=== PATIENT | female | born 1940 | race African-American/Black ===

== ENCOUNTER 2021-06-28 13:30 | Observation (INO) ==
[2021-06-28 19:10] LABS: Calcium 8.6 MG/DL (8.5-10.1); Potassium 3.2 MMOL/L (3.5-5.1)
[2021-06-28] MEDS ORDERED: SODIUM CHLORIDE 0.9% 1,000 ML IV STA (19:17)
[2021-06-28 19:21] LABS: INR 1.1; PT Patient Result 12.2 SECS (10.5-12.0); Partial Thromboplastin Time 26.5 SECS (23.8-32.1)
[2021-06-28] MEDS ORDERED: propofoL 200 MG/20 ML VIAL IV ONE (19:42)
[2021-06-28] MEDS ORDERED: ONDANSETRON 4 MG/2 ML VIAL IV PRN (20:42)
[2021-06-28] MEDS ORDERED: ZALEPLON 5 MG CAPSULE PO PRN (20:42)
[2021-06-28] MEDS ORDERED: hydrALAZINE 20 MG/1 ML VIAL IV PRN (20:42)
[2021-06-28] MEDS ORDERED: MORPHINE 4 MG/1 ML VIAL IV PRN (20:42)
[2021-06-28] MEDS ORDERED: ACETAMINOPHEN 325 MG TABLET PO PRN (20:42)
[2021-06-28] MEDS ORDERED: GLUCAGON 1 MG VIAL IM PRN (20:42)
[2021-06-28] MEDS ORDERED: DEXTROSE 10% 250 ML BAG IV PRN (20:51)
[2021-06-28 20:59] LABS: Basophils % 0.2 % (0.0-0.8); Eosinophils # 0.1 10*3/uL (0.0-0.87); Eosinophils % 0.8 % (0.00-10.9); Hematocrit 44.3 VOL% (35.7-47.0); Hemoglobin 14.5 GM/DL (12.0-16.0); Immature Granulocytes % 0.7 %; Immature Granulocytes Absolute 0.06 #; Lymphocytes # 2.7 10*3/uL (1.4-4.0); Lymphocytes % 29.4 % (21.3-54.2); Mean Corpuscular HGB Conc 32.7 GM/DL (32-36); Mean Corpuscular Volume 95.3 FL (87-102); Mean Platelet Volume 10.9 FL (9.6-12.0); Monocytes % 10.3 % (1.7-12.7); Neutrophils % 58.6 % (38.7-73.9); Platelet Count 201 T/CUMM (130-400); Red Blood Count 4.65 MC/CUMM (3.8-5.5); Red Cell Distribution Width 14.6 % (9.3-17.3); White Blood Count 9.2 T/CUMM (4-12)
[2021-06-28] MEDS: SODIUM CHLORIDE 0.9% 1,000 ML IV SCH (21:27)
[2021-06-28 22:30] LABS: Bacteria,Urine Occasional /HPF (Few); Mucus,Urine Occasional /LPF (Occasional); RBC,Urine 2 /HPF (0-4); Squamous Epithelial Cell,Urine Occasional /HPF (0-10)
[2021-06-28 22:31] LABS: Glucose,Urine (UA) Negative (Negative); Protein,Urine Negative; Urine Appearance Slightly Cloudy (Clear); Urine Color Yellow (Yellow)
[2021-06-28 22:32] LABS: Bilirubin,Urine Negative (Negative); Blood, Urine Trace mg/dL (Negative); Ketones,Urine Small mg/dl (Negative); Nitrite,Urine Negative (Negative); Urine Urobilinogen 0.2 EU/DL (<2.0)
[2021-06-29] MEDS ORDERED: propofoL 200 MG/20 ML VIAL IV ONE (00:17)
[2021-06-29 01:32] LABS: RPR Confirm - Less than 1 yr REACTIVE (Nonreactive)
[2021-06-29 02:13] LABS: Basophils % 0.3 % (0.0-0.8); Eosinophils # 0.2 10*3/uL (0.0-0.87); Eosinophils % 1.9 % (0.00-10.9); Hematocrit 42.9 VOL% (35.7-47.0); Hemoglobin 14.3 GM/DL (12.0-16.0); Immature Granulocytes % 0.3 %; Immature Granulocytes Absolute 0.02 #; Lymphocytes # 2.4 10*3/uL (1.4-4.0); Lymphocytes % 30.3 % (21.3-54.2); Mean Corpuscular HGB Conc 33.3 GM/DL (32-36); Mean Corpuscular Volume 94.3 FL (87-102); Mean Platelet Volume 10.2 FL (9.6-12.0); Monocytes % 9.3 % (1.7-12.7); Neutrophils % 57.9 % (38.7-73.9); Platelet Count 183 T/CUMM (130-400); Red Blood Count 4.55 MC/CUMM (3.8-5.5); Red Cell Distribution Width 14.4 % (9.3-17.3); White Blood Count 7.8 T/CUMM (4-12)
[2021-06-29 02:42] LABS: Albumin 3.4 G/DL (3.4-5.0); Bilirubin,Total 0.7 MG/DL (0.20-1.00); Calcium 8.4 MG/DL (8.5-10.1); Osmolality,Calculated 280.8 MOS/KG (273-304); Potassium 3.1 MMOL/L (3.5-5.1); Total Protein 7.3 G/DL (6.4-8.2); VLDL Cholesterol 20.8 MG/DL
[2021-06-29] MEDS ORDERED: POTASSIUM CHLORIDE 20 MEQ TABLET PO ONE (08:52)
[2021-06-29] MEDS ORDERED: DEXTROSE 50% 25 GM/50 ML VIAL IV PRN (10:47)
[2021-06-29] MEDS ORDERED: GLUCAGON 1 MG VIAL IM PRN (10:47)
[2021-06-29] MEDS: PANTOPRAZOLE 40 MG TABLET PO SCH (12:05)
[2021-06-29] MEDS: SODIUM CHLORIDE 0.9% 1,000 ML IV SCH (21:21)
[2021-06-30 05:56] LABS: Basophils % 0.4 % (0.0-0.8); Eosinophils # 0.1 10*3/uL (0.0-0.87); Eosinophils % 2.8 % (0.00-10.9); Hematocrit 37.5 VOL% (35.7-47.0); Hemoglobin 12.4 GM/DL (12.0-16.0); Immature Granulocytes % 0.4 %; Immature Granulocytes Absolute 0.02 #; Lymphocytes # 1.7 10*3/uL (1.4-4.0); Lymphocytes % 33.7 % (21.3-54.2); Mean Corpuscular HGB Conc 33.1 GM/DL (32-36); Mean Corpuscular Volume 96.4 FL (87-102); Mean Platelet Volume 10.2 FL (9.6-12.0); Monocytes % 12.2 % (1.7-12.7); Neutrophils % 50.5 % (38.7-73.9); Platelet Count 157 T/CUMM (130-400); Red Blood Count 3.89 MC/CUMM (3.8-5.5); Red Cell Distribution Width 14.6 % (9.3-17.3); White Blood Count 5.1 T/CUMM (4-12)
[2021-06-30 06:08] LABS: Calcium 7.5 MG/DL (8.5-10.1); Osmolality,Calculated 285.3 MOS/KG (273-304); Potassium 3.4 MMOL/L (3.5-5.1)
[2021-06-30] MEDS: SODIUM CHLORIDE 0.9% 1,000 ML IV SCH ×3 (07:36→13:53)
[2021-06-30] MEDS: PANTOPRAZOLE 40 MG TABLET PO SCH (08:29)
[2021-06-30] MEDS ORDERED: amLODIPine 10 MG TABLET PO SCH (09:00)
[2021-06-30] MEDS ORDERED: CHOLECALCIFEROL 5,000 UNIT TABLET PO SCH (09:00)
[2021-06-30 11:19] VITALS: BP 132/71
== END 2021-06-30 14:40 | disposition home or self-care (01) ==
LOC: N.ED 13:30 → N.3E 13:30 → SUATTDRO 21:00 → N.3E 06-29 01:15
PROVIDERS: ADMIT Internal Medicine; ATTEND Emergency Medicine

== ENCOUNTER 2021-10-29 12:38 | Observation (INO) ==
[2021-10-29] MEDS ORDERED: levETIRAcetam 500 MG/5 ML VIAL IV ONE (12:45)
[2021-10-29] MEDS ORDERED: LORazepam 2 MG/1 ML VIAL IV STA (12:46)
[2021-10-29 13:27] LABS: Alanine Aminotransferase 19 U/L (13-56); Alkaline Phosphatase 82 U/L (45-117); Aspartate Amino Transferase 21 U/L (0-37); Blood Urea Nitrogen 17 MG/DL (7-18); Calcium 9.4 MG/DL (8.5-10.1); Carbon Dioxide 13 MMOL/L (21-32); Chloride 109 MMOL/L (98-107); Glucose 202 MG/DL (74-106); Osmolality,Calculated 297.6 MOS/KG (273-304); Sodium 146 MMOL/L (136-145); Total Protein 7.7 G/DL (6.4-8.2)
[2021-10-29] MEDS ORDERED: SODIUM CHLOR 0.9% KCL 20 MEQ 20 MEQ/1,000 ML BAG IV STA (13:29)
[2021-10-29 13:34] LABS: Eosinophils # 0.1 10*3/uL (0.0-0.87); Eosinophils % 1.2 % (0.00-10.9); Hematocrit 43.8 VOL% (35.7-47.0); Immature Granulocytes % 0.1 %; Immature Granulocytes Absolute 0.01 #; Red Blood Count 4.21 MC/CUMM (3.8-5.5)
[2021-10-29 13:53] LABS: Basophils % 0.3 % (0.0-0.8); Hemoglobin 13.1 GM/DL (12.0-16.0); Lymphocytes # 5.5 10*3/uL (1.4-4.0); Lymphocytes % 63.2 % (21.3-54.2); Mean Corpuscular HGB Conc 29.9 GM/DL (32-36); Mean Platelet Volume 10.7 FL (9.6-12.0); Monocytes # 0.8 10*3/uL (0.11-0.8); Monocytes % 9.5 % (1.7-12.7); Neutrophils % 25.7 % (38.7-73.9); Platelet Count 207 T/CUMM (130-400); Red Cell Distribution Width 13.7 % (9.3-17.3); White Blood Count 8.6 T/CUMM (4-12)
[2021-10-29 13:58] LABS: Burr Cells Few; Eosinophils 1 % (0-10); Lymphocytes 62 % (20-55); Platelet Estimate Adequate; Total Cells Counted 100
[2021-10-29 14:32] LABS: Barbiturates Screen,Urine Negative (Negative); Benzodiazepines Screen,Urine Negative (Negative); Cannabinoid Screen,Urine Negative (Negative); Opiate Screen,Urine Negative (Negative); Phencyclidine Screen,Urine Negative (Negative)
[2021-10-29] MEDS ORDERED: DIAZEPAM 10 MG/2 ML SYRINGE IV PRN (15:35)
[2021-10-29] MEDS ORDERED: DOCUSATE SODIUM 100 MG CAPSULE PO PRN (15:35)
[2021-10-29] MEDS ORDERED: CALCIUM CARBONATE CHEW 500 MG TABLET PO PRN (15:35)
[2021-10-29] MEDS ORDERED: ONDANSETRON 4 MG/2 ML VIAL IV PRN (15:35)
[2021-10-29] MEDS ORDERED: POTASSIUM CHLORIDE 20 MEQ TABLET PO ONE (15:41)
[2021-10-30] MEDS: LACTATED RINGERS 1,000 ML IV SCH ×3 (00:38→10:57)
[2021-10-30] MEDS: ACETAMINOPHEN 325 MG TABLET PO PRN ×2 (03:27→11:47)
[2021-10-30 04:38] LABS: Basophils % 0.3 % (0.0-0.8); Eosinophils # 0.1 10*3/uL (0.0-0.87); Eosinophils % 0.8 % (0.00-10.9); Hematocrit 35.8 VOL% (35.7-47.0); Hemoglobin 11.4 GM/DL (12.0-16.0); Immature Granulocytes % 0.2 %; Immature Granulocytes Absolute 0.01 #; Lymphocytes # 1.7 10*3/uL (1.4-4.0); Lymphocytes % 28.9 % (21.3-54.2); Mean Corpuscular HGB Conc 31.8 GM/DL (32-36); Mean Corpuscular Volume 96.8 FL (87-102); Mean Platelet Volume 10.3 FL (9.6-12.0); Monocytes # 0.7 10*3/uL (0.11-0.8); Neutrophils % 57.8 % (38.7-73.9); Platelet Count 177 T/CUMM (130-400); Red Cell Distribution Width 13.9 % (9.3-17.3); White Blood Count 5.9 T/CUMM (4-12)
[2021-10-30 04:56] LABS: Calcium 8.8 MG/DL (8.5-10.1); Osmolality,Calculated 286.8 MOS/KG (273-304)
[2021-10-30] MEDS ORDERED: POTASSIUM CHLORIDE 20 MEQ TABLET PO ONE ×2 (09:00→11:00)
[2021-10-30] MEDS: DOCUSATE SODIUM 100 MG CAPSULE PO SCH ×2 (10:11→21:07)
[2021-10-30] MEDS: APIXABAN 5 MG TABLET PO SCH ×2 (10:11→21:07)
[2021-10-30] MEDS: ROSUVASTATIN 20 MG TABLET PO SCH (10:11)
[2021-10-31] MEDS: LACTATED RINGERS 1,000 ML IV SCH ×2 (00:04→03:04)
[2021-10-31 05:25] LABS: Basophils % 0.5 % (0.0-0.8); Eosinophils # 0.1 10*3/uL (0.0-0.87); Eosinophils % 1.6 % (0.00-10.9); Hematocrit 36.4 VOL% (35.7-47.0); Hemoglobin 11.7 GM/DL (12.0-16.0); Lymphocytes # 2.1 10*3/uL (1.4-4.0); Lymphocytes % 46.8 % (21.3-54.2); Mean Corpuscular HGB Conc 32.1 GM/DL (32-36); Mean Corpuscular Volume 97.1 FL (87-102); Mean Platelet Volume 10.4 FL (9.6-12.0); Monocytes # 0.5 10*3/uL (0.11-0.8); Monocytes % 11.5 % (1.7-12.7); Neutrophils % 39.6 % (38.7-73.9); Platelet Count 171 T/CUMM (130-400); Red Blood Count 3.75 MC/CUMM (3.8-5.5); Red Cell Distribution Width 13.8 % (9.3-17.3); White Blood Count 4.4 T/CUMM (4-12)
[2021-10-31 05:38] LABS: Calcium 8.6 MG/DL (8.5-10.1); Osmolality,Calculated 283.1 MOS/KG (273-304); Potassium 3.4 MMOL/L (3.5-5.1)
[2021-10-31] MEDS: PANTOPRAZOLE 40 MG TABLET PO SCH (05:40)
[2021-10-31] MEDS: ACETAMINOPHEN 325 MG TABLET PO PRN ×3 (05:40→21:31)
[2021-10-31 05:51] LABS: Risk Ratio 2.45; Thyroid Stimulating Hormone 2.53 uIU/ml (0.358-3.74); VLDL Cholesterol 16.6 MG/DL
[2021-10-31] MEDS ORDERED: POTASSIUM CHLORIDE 20 MEQ TABLET PO ONE (09:00)
[2021-10-31] MEDS: ROSUVASTATIN 20 MG TABLET PO SCH (09:13)
[2021-10-31] MEDS: APIXABAN 5 MG TABLET PO SCH ×2 (09:14→21:31)
[2021-10-31] MEDS: amLODIPine 10 MG TABLET PO SCH (09:14)
[2021-10-31] MEDS: DOCUSATE SODIUM 100 MG CAPSULE PO SCH ×2 (09:14→21:31)
[2021-10-31] MEDS ORDERED: MAGNESIUM HYDROXIDE SUSP 30 ML UDCUP PO ONE (15:00)
[2021-10-31] MEDS: levETIRAcetam 500 MG TABLET PO SCH (21:31)
[2021-11-01 05:03] LABS: Basophils % 0.6 % (0.0-0.8); Eosinophils # 0.1 10*3/uL (0.0-0.87); Eosinophils % 2.6 % (0.00-10.9); Hematocrit 38.1 VOL% (35.7-47.0); Hemoglobin 12.2 GM/DL (12.0-16.0); Immature Granulocytes % 0.3 %; Immature Granulocytes Absolute 0.01 #; Lymphocytes # 1.6 10*3/uL (1.4-4.0); Lymphocytes % 46.6 % (21.3-54.2); Mean Corpuscular Volume 97.2 FL (87-102); Mean Platelet Volume 10.4 FL (9.6-12.0); Monocytes # 0.5 10*3/uL (0.11-0.8); Monocytes % 13.5 % (1.7-12.7); Neutrophils % 36.4 % (38.7-73.9); Platelet Count 174 T/CUMM (130-400); Red Blood Count 3.92 MC/CUMM (3.8-5.5); Red Cell Distribution Width 13.7 % (9.3-17.3); White Blood Count 3.5 T/CUMM (4-12)
[2021-11-01 05:22] LABS: Calcium 8.4 MG/DL (8.5-10.1); Osmolality,Calculated 282.1 MOS/KG (273-304); Potassium 3.5 MMOL/L (3.5-5.1)
[2021-11-01 05:30] LABS: Eosinophils 4 % (0-10); Lymphocytes 44 % (20-55); Platelet Estimate Adequate; Total Cells Counted 100
[2021-11-01] MEDS: PANTOPRAZOLE 40 MG TABLET PO SCH (05:58)
[2021-11-01] MEDS: ACETAMINOPHEN 325 MG TABLET PO PRN (05:58)
[2021-11-01] MEDS: DOCUSATE SODIUM 100 MG CAPSULE PO SCH ×2 (10:11→20:41)
[2021-11-01] MEDS: APIXABAN 5 MG TABLET PO SCH ×2 (10:11→20:41)
[2021-11-01] MEDS: levETIRAcetam 500 MG TABLET PO SCH ×2 (10:11→20:41)
[2021-11-01] MEDS: ROSUVASTATIN 20 MG TABLET PO SCH (10:12)
[2021-11-01] MEDS: amLODIPine 10 MG TABLET PO SCH (10:12)
[2021-11-01] MEDS ORDERED: ACETAMINOPHEN 325 MG TABLET PO PRN (11:10)
[2021-11-01] MEDS ORDERED: DIAZEPAM 5 MG TABLET PO ONE (13:00)
[2021-11-01] MEDS ORDERED: diphenhydrAMINE 50 MG/1 ML VIAL IV ONE (16:00)
[2021-11-01] MEDS ORDERED: METOCLOPRAMIDE 10 MG/2 ML VIAL IV ONE (16:00)
[2021-11-01] MEDS ORDERED: KETOROLAC 15 MG/1 ML VIAL IV ONE (16:00)
[2021-11-02 06:11] LABS: Basophils % 0.6 % (0.0-0.8); Eosinophils # 0.1 10*3/uL (0.0-0.87); Eosinophils % 3.1 % (0.00-10.9); Hematocrit 39.6 VOL% (35.7-47.0); Hemoglobin 12.6 GM/DL (12.0-16.0); Lymphocytes % 55.2 % (21.3-54.2); Mean Corpuscular HGB Conc 31.8 GM/DL (32-36); Mean Corpuscular Volume 96.8 FL (87-102); Mean Platelet Volume 10.5 FL (9.6-12.0); Monocytes # 0.4 10*3/uL (0.11-0.8); Monocytes % 10.4 % (1.7-12.7); Neutrophils % 30.7 % (38.7-73.9); Platelet Count 198 T/CUMM (130-400); Red Blood Count 4.09 MC/CUMM (3.8-5.5); Red Cell Distribution Width 13.6 % (9.3-17.3); White Blood Count 3.6 T/CUMM (4-12)
[2021-11-02] MEDS: PANTOPRAZOLE 40 MG TABLET PO SCH (06:14)
[2021-11-02 06:28] LABS: Calcium 8.8 MG/DL (8.5-10.1); Potassium 3.2 MMOL/L (3.5-5.1)
[2021-11-02 06:57] LABS: Eosinophils 5 % (0-10); Lymphocytes 46 % (20-55); Platelet Estimate Adequate; Total Cells Counted 100
[2021-11-02] MEDS: APIXABAN 5 MG TABLET PO SCH (08:26)
[2021-11-02] MEDS: ROSUVASTATIN 20 MG TABLET PO SCH (08:26)
[2021-11-02] MEDS: levETIRAcetam 500 MG TABLET PO SCH (08:27)
[2021-11-02] MEDS: DOCUSATE SODIUM 100 MG CAPSULE PO SCH (08:27)
[2021-11-02] MEDS: amLODIPine 10 MG TABLET PO SCH (08:27)
[2021-11-02] MEDS ORDERED: POTASSIUM CHLORIDE 20 MEQ TABLET PO ONE (09:00)
[2021-11-02 11:50] VITALS: BP 126/66
== END 2021-11-02 13:06 | disposition home health service (06) ==
LOC: N.ED 12:38 → N.EDINP 15:35 → SUATTDRO 15:35 → INTOOBSV 15:35 → N.EDINP 18:55 → N.5E 20:40
PROVIDERS: ADMIT Internal Medicine Geriatric Medicine; ATTEND Family Medicine

== ENCOUNTER 2022-01-21 07:45 | Observation (INO) ==
[2022-01-21 08:12] LABS: Basophils % 0.4 % (0.0-0.8); Eosinophils # 0.1 10*3/uL (0.0-0.87); Eosinophils % 1.1 % (0.00-10.9); Hematocrit 41.9 VOL% (35.7-47.0); Hemoglobin 12.9 GM/DL (12.0-16.0); Immature Granulocytes % 0.7 %; Immature Granulocytes Absolute 0.06 #; Lymphocytes # 2.9 10*3/uL (1.4-4.0); Lymphocytes % 33.6 % (21.3-54.2); Mean Corpuscular HGB Conc 30.8 GM/DL (32-36); Mean Corpuscular Volume 98.8 FL (87-102); Mean Platelet Volume 9.6 FL (9.6-12.0); Monocytes # 0.3 10*3/uL (0.11-0.8); Monocytes % 3.3 % (1.7-12.7); Neutrophils % 60.9 % (38.7-73.9); Platelet Count 221 T/CUMM (130-400); Red Blood Count 4.24 MC/CUMM (3.8-5.5); Red Cell Distribution Width 15.9 % (9.3-17.3); White Blood Count 8.5 T/CUMM (4-12)
[2022-01-21] MEDS ORDERED: SODIUM CHLORIDE 0.9% 1,000 ML IV STA (08:13)
[2022-01-21 08:23] LABS: PT Patient Result 11.2 SECS (10.1-12.1); Partial Thromboplastin Time 24.1 SECS (23.7-32.9)
[2022-01-21] MEDS ORDERED: levETIRAcetam 500 MG/5 ML VIAL IV ONE (08:31)
[2022-01-21 08:47] LABS: Calcium 8.9 MG/DL (8.5-10.1); Osmolality,Calculated 288.3 MOS/KG (273-304); Potassium 3.8 MMOL/L (3.5-5.1)
[2022-01-21 08:58] LABS: Amorphous Crystals,Urine Few /HPF (Few); Glucose,Urine (UA) Negative (Negative); Hyaline Casts,Urine 149 /LPF (0-3); Mucus,Urine Few /LPF (Occasional); Protein,Urine >=300 mg/dL (Negative); Urine Appearance Cloudy (Clear); Urine Color Yellow (Yellow); Urine Specific Gravity > 1.030 (1.001-1.035); Urine pH 5.5 (4.5-8.0)
[2022-01-21 08:59] LABS: Bilirubin,Urine Negative (Negative); Blood, Urine Small mg/dL (Negative); Ketones,Urine Negative (Negative); Nitrite,Urine Negative (Negative)
[2022-01-21] MEDS ORDERED: KETOROLAC 30 MG/1 ML VIAL IV STA (09:07)
[2022-01-21 09:21] LABS: Barbiturates Screen,Urine Negative (Negative); Benzodiazepines Screen,Urine Positive (Negative); Cannabinoid Screen,Urine Negative (Negative); Opiate Screen,Urine Negative (Negative); Phencyclidine Screen,Urine Negative (Negative)
[2022-01-21] MEDS ORDERED: GLUCAGON 1 MG VIAL IM PRN (13:39)
[2022-01-21] MEDS ORDERED: ACETAMINOPHEN 325 MG TABLET PO PRN (13:39)
[2022-01-21] MEDS ORDERED: DEXTROSE 10% 250 ML BAG IV PRN (13:39)
[2022-01-21] MEDS ORDERED: ONDANSETRON 4 MG/2 ML VIAL IV PRN (13:39)
[2022-01-21 14:47] LABS: Albumin 3.2 G/DL (3.4-5.0); Bilirubin,Total 0.4 MG/DL (0.20-1.00); Calcium 9.1 MG/DL (8.5-10.1); Osmolality,Calculated 283.1 MOS/KG (273-304); Potassium 3.7 MMOL/L (3.5-5.1); Total Protein 7.4 G/DL (6.4-8.2)
[2022-01-21] MEDS: SODIUM CHLORIDE 0.9% 1,000 ML IV SCH (17:39)
[2022-01-21] MEDS: ROSUVASTATIN 20 MG TABLET PO SCH (21:24)
[2022-01-21] MEDS: APIXABAN 5 MG TABLET PO SCH (21:25)
[2022-01-21] MEDS ORDERED: INFLUENZA VIRUS VACCINE 0.5 ML SYRINGE IM ONE (23:16)
[2022-01-22] MEDS: LACOSAMIDE 50 MG TABLET PO SCH ×3 (00:03→20:40)
[2022-01-22 05:43] LABS: Basophils % 0.3 % (0.0-0.8); Eosinophils % 0.1 % (0.00-10.9); Hematocrit 37.4 VOL% (35.7-47.0); Hemoglobin 12.2 GM/DL (12.0-16.0); Immature Granulocytes % 0.3 %; Immature Granulocytes Absolute 0.02 #; Lymphocytes # 2.1 10*3/uL (1.4-4.0); Lymphocytes % 28.9 % (21.3-54.2); Mean Corpuscular HGB Conc 32.6 GM/DL (32-36); Mean Corpuscular Volume 94.7 FL (87-102); Mean Platelet Volume 10.9 FL (9.6-12.0); Monocytes # 0.7 10*3/uL (0.11-0.8); Monocytes % 9.2 % (1.7-12.7); Neutrophils % 61.2 % (38.7-73.9); Platelet Count 191 T/CUMM (130-400); Red Blood Count 3.95 MC/CUMM (3.8-5.5); White Blood Count 7.1 T/CUMM (4-12)
[2022-01-22] MEDS: SODIUM CHLORIDE 0.9% 1,000 ML IV SCH ×2 (05:48→15:57)
[2022-01-22 05:58] LABS: Calcium 8.7 MG/DL (8.5-10.1); Osmolality,Calculated 289.7 MOS/KG (273-304); Potassium 3.3 MMOL/L (3.5-5.1)
[2022-01-22] MEDS ORDERED: POTASSIUM CHLORIDE RIDER 10 MEQ/100 ML PREMIX IV PRN (06:46)
[2022-01-22] MEDS: POTASSIUM CHLORIDE 20 MEQ TABLET PO PRN ×3 (06:58→11:41)
[2022-01-22] MEDS: amLODIPine 5 MG TABLET PO SCH (09:08)
[2022-01-22] MEDS: PANTOPRAZOLE 40 MG TABLET PO SCH (09:08)
[2022-01-22] MEDS: APIXABAN 5 MG TABLET PO SCH ×2 (09:11→20:40)
[2022-01-22] MEDS: INSULIN LISPRO 100 UNIT/ML SUBCUT SCH ×3 (11:41→20:40)
[2022-01-22] MEDS: ROSUVASTATIN 20 MG TABLET PO SCH (20:40)
[2022-01-23 05:43] LABS: Basophils % 0.3 % (0.0-0.8); Eosinophils # 0.1 10*3/uL (0.0-0.87); Eosinophils % 1.2 % (0.00-10.9); Hematocrit 37.8 VOL% (35.7-47.0); Immature Granulocytes % 0.5 %; Immature Granulocytes Absolute 0.03 #; Lymphocytes # 2.2 10*3/uL (1.4-4.0); Lymphocytes % 33.1 % (21.3-54.2); Mean Corpuscular HGB Conc 31.7 GM/DL (32-36); Mean Corpuscular Volume 95.9 FL (87-102); Mean Platelet Volume 10.4 FL (9.6-12.0); Monocytes # 0.5 10*3/uL (0.11-0.8); Neutrophils % 56.9 % (38.7-73.9); Platelet Count 180 T/CUMM (130-400); Red Blood Count 3.94 MC/CUMM (3.8-5.5); Red Cell Distribution Width 15.9 % (9.3-17.3); White Blood Count 6.5 T/CUMM (4-12)
[2022-01-23 06:03] LABS: Osmolality,Calculated 282.1 MOS/KG (273-304); Potassium 3.5 MMOL/L (3.5-5.1)
[2022-01-23] MEDS: SODIUM CHLORIDE 0.9% 1,000 ML IV SCH ×2 (08:32→21:03)
[2022-01-23] MEDS: INSULIN LISPRO 100 UNIT/ML SUBCUT SCH ×4 (08:32→20:26)
[2022-01-23] MEDS: LACOSAMIDE 50 MG TABLET PO SCH ×2 (09:15→20:27)
[2022-01-23] MEDS: PANTOPRAZOLE 40 MG TABLET PO SCH (09:15)
[2022-01-23] MEDS: amLODIPine 5 MG TABLET PO SCH (09:15)
[2022-01-23] MEDS: POTASSIUM CHLORIDE 20 MEQ TABLET PO PRN ×2 (09:15→11:11)
[2022-01-23] MEDS: APIXABAN 5 MG TABLET PO SCH ×2 (09:15→20:27)
[2022-01-23] MEDS ORDERED: KETOROLAC 15 MG/1 ML VIAL IV PRN (12:24)
[2022-01-23] MEDS: metFORMIN 500 MG TABLET PO SCH (18:03)
[2022-01-23] MEDS: ROSUVASTATIN 20 MG TABLET PO SCH (20:27)
[2022-01-23] MEDS ORDERED: DONEPEZIL 5 MG TABLET PO SCH (21:00)
[2022-01-24] MEDS: LACOSAMIDE 50 MG TABLET PO SCH (09:58)
[2022-01-24] MEDS: metFORMIN 500 MG TABLET PO SCH (10:01)
[2022-01-24] MEDS: PANTOPRAZOLE 40 MG TABLET PO SCH (10:02)
[2022-01-24] MEDS: amLODIPine 5 MG TABLET PO SCH (10:02)
[2022-01-24] MEDS: APIXABAN 5 MG TABLET PO SCH (10:06)
[2022-01-24] MEDS: INSULIN LISPRO 100 UNIT/ML SUBCUT SCH (10:07)
[2022-01-24 11:47] VITALS: BP 142/67
== END 2022-01-24 11:51 | disposition swing bed (61) ==
LOC: EDUNIT# → EDBD → N.ED 07:45 → N.EDINP 07:45 → SUATTDRO 13:39 → N.5E 21:11
PROVIDERS: ADMIT Emergency Medicine; ATTEND Internal Medicine